=== PATIENT | female | born 1955 | race Caucasian/White ===

== ENCOUNTER → 2017-03-17 | Outpatient (CLI) | payer OTHER | LOC: BRMIMAGING 10:38 | PROVIDERS: ATTEND Family Medicine | DX: Z12.31 Encounter for screening mammogram for malignant neoplasm of breast (principal) | CPT/HCPCS: G0202 ==

== ENCOUNTER → 2017-06-01 | Outpatient (CLI) | payer OTHER | LOC: BRMIMAGING 14:46 | PROVIDERS: ATTEND Family Medicine | DX: M85.80 Other specified disorders of bone density and structure, unspecified site (principal); M19.072 Primary osteoarthritis, left ankle and foot | CPT/HCPCS: 73630-PO ==

== ENCOUNTER 2017-06-11 05:36 | Day surgery (SDC) | payer OTHER ==
--- NOTE | 2017-06-10 10:20 | GHP ---
[f rep st] HISTORY AND PHYSICAL DATE OF ADMISSION: 06/11/2017 Date of the surgery will be June 11, 2017. CHIEF COMPLAINT: Esophageal cancer. 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 She was not felt to be an appropriate candidate for e ndoscopic mucosal resection and did not want an esophagectomy. She underwent chemotherapy and radiat ion. 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 She had an EUS in March, which showed an ulcerated mass i nvolving 2/3 of the circumference. She has declined surgery. She wishes to pursue additional chemot herapy and radiation. She presents for port and PEG placement. PAST MEDICAL HISTORY: Asthma, Sjogren's, obstructive sleep apnea, hypertension, gastroesophageal ref lux disease, esophageal cancer and recent injury to her left foot. PAST SURGICAL HISTORY: Previous surgery includes hysterectomy without oophorectomy, sinus surgery, d ental implants, and Lasix. SOCIAL HISTORY: She previously worked for [employer]. She is retired. She does not use alcohol. She is single. REVIEW OF SYSTEMS: Significant for fatigue, weight loss, some difficulty swallowing and mild neuropa thy. PHYSICAL EXAMINATION: GENERAL: Pleasant, well-nourished, thin and well-groomed woman. HEENT: Norm ocephalic. No gross hearing deficits. Mucous membranes moist. Pupils equal and round. No scleral icterus. LUNGS: Clear to auscultation bilaterally. No increased work of breathing. CARDIAC: Regu lar rate. ABDOMEN: Bowel sounds present. She is soft and nontender. SKIN: Warm and dry. She has a wrap on her ankle. MUSCULOSKELETAL: Normal nails. PSYCH: Mood and affect normal. IMPRESSION AND PLAN: The patient is a 61-year-old woman with esophageal cancer. She will present fo r a port placement and G-tube placement. The risks and benefits, including, but not limited to, stro ke, heart attack, , blood clots, infection, bleeding, damage to surrounding structures, pneumoth orax or needing further surgery were discussed. /[id number]/MODL
[2017-06-11] MEDS ORDERED: ceFAZolin 2 GM/SWFI 2 GM/20 ML SYR IVP ONE (06:07)
[2017-06-11] MEDS ORDERED: LR 1,000 ML IV ONE (06:16)
[2017-06-11] MEDS ORDERED: BACITRACIN ZINC 14.2 GM OINTTUBE TP ONE (06:31)
[2017-06-11] MEDS ORDERED: BUPIVACAINE 0.5% 30 ML SDV ONE (06:31)
[2017-06-11 07:12] LABS: ANION GAP 11 mEq/L (8-16); CALCIUM 9.2 mg/dL (8.5-10.4); CARBON DIOXIDE 24 mEq/l (22-31); CHLORIDE 96 mEq/L (97-110); CREATININE 0.9 mg/dL (0.6-1.0); GLOMERULAR FILTRATION RATE > 60; GLUCOSE 87 mg/dL (70-100); POTASSIUM 4.7 mEq/L (3.5-5.2); SODIUM 131 mEq/L (134-144)
--- NOTE | 2017-06-11 07:23 | PDHPUP ---
History & Physical Update H&P update statement: This history and physical update is based on an assessment of the patient which was completed after admission or registration (within 24 hours), but prior to the surgery/procedure. H&P update: H&P reviewed & patient examined, no change in patient's condition since H&P completed
[2017-06-11] MEDS ORDERED: PHENYLEPHRINE HCL 100 MCG/ML SYR ONE (07:34)
[2017-06-11] MEDS ORDERED: PROPOFOL 200 MG/20 ML VIAL ONE (07:34)
[2017-06-11] MEDS ORDERED: LIDOCAINE 2% 5 ML SDV ONE (07:34)
[2017-06-11] MEDS ORDERED: MIDAZOLAM 2 MG/2 ML VIAL ONE (07:40)
[2017-06-11] MEDS ORDERED: fentaNYL 100 MCG/2 ML INJ ONE ×2 (07:57→10:03)
[2017-06-11] MEDS ORDERED: GLYCOPYRROLATE 0.2 MG/1 ML VIAL ONE ×2 (08:08→08:50)
[2017-06-11] MEDS ORDERED: PROPOFOL/EMULSION 500 MG/50 ML BOTTLE IV ONE (08:09)
--- NOTE | 2017-06-11 08:23 | PDANEPAE ---
ANE History of Present Illness 61 year old female for port placement and gastrostromy tube placement ANE Past Medical History - Cardiovascular History Hx Hypertension: Yes Hx Arrhythmias: No Hx Chest Pain: No Hx Coronary Artery / Peripheral Vascular Disease: No Hx CHF / Valvular Disease: No Hx Palpitations: No - Pulmonary History Hx COPD: No Hx Asthma/Reactive Airway Disease: Yes Hx Recent Upper Respiratory Infection: No Hx Oxygen in Use at Home: No Hx Sleep Apnea: Yes Sleep Apnea Screening Result - Last Documented: Positive - Neurologic History Hx Cerebrovascular Accident: No Hx Seizures: No Hx Dementia: No - Endocrine History Hx Diabetes: No - Renal History Hx Renal Disorders: No - Liver History Hx Hepatic Disorders: No - Neurological & Psychiatric Hx Hx Neurological and Psychiatric Disorders: Yes Neurological / Psychiatric History Comment: 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 COLONOSCOPY ANE Review of Systems Review of Systems: - Exercise capacity METS (RN): 3 METS ANE Patient History - Allergies Allergies/Adverse Reactions: morphine Allergy (Mild, Verified 06/11/17 06:09) Other-Enter Comments Penicillins Allergy (Mild, Verified 06/11/17 06:09) Rash - Home Medications Home Medications: Amlodipine Besylate 06/05/17 [Last Taken 06/11/17 01:00] Benicar 06/05/17 [Last Taken 06/11/17 01:00] Clonidine 06/05/17 [Last Taken 06/10/17 21:00] Hydrocodone-Acetamin 5-325 mg 06/05/17 [Last Taken 06/11/17 01:00] Medical Marijuana 06/05/17 [Last Taken 06/10/17] Pantoprazole Sodium 06/05/17 [Last Taken 06/11/17 01:00] Zoloft 25mg (*) 06/05/17 [Last Taken 06/10/17 20:00] Loratadine/Pseudoephedrine [Claritin-D 24 Hour Tablet] 06/11/17 [Last Taken ] Senokot 06/11/17 [Last Taken 06/10/17] - NPO status NPO Since - Liquids (Date): 06/10/17 NPO Since - Liquids (Time): 21:00 NPO Since - Solids (Date): 06/10/17 NPO Since - Solids (Time): 21:00 - Anes Hx Anes Hx: no prior problems - Smoking Hx Smoking Status: Never smoked - Family Anes Hx Family Hx Anesthesia Complications: NONE ANE Labs/Vital Signs - Labs Result Diagrams: 06/11/17 06:30 - Vital Signs Blood Pressure: 137/95 Heart Rate: 72 Respiratory Rate: 16 O2 Sat (%): 97 Height: 157.48 cm Weight: 58.967 kg ANE Physical Exam - Airway Mallampati Score: Class 1 Mouth exam: normal dental/mouth exam
--- NOTE | 2017-06-11 08:24 | POSTANESTH ---
Post Anesthetic Evaluation Respiratory Status: Normal, Stable Level of Consciousness/Mental Status: Can Participate in Eval Pain Control: Adequate, Prn Tx Ordered Nausea/Vomiting Control: Adequate, Prn Tx Ordered Complications Possibly Related to Anesthesia: None Noted
[2017-06-11] MEDS ORDERED: PROMETHAZINE HCL 25 MG/ML INJ IVP PRN (08:25)
[2017-06-11] MEDS ORDERED: ALBUTEROL 3 ML DEYVIAL IH PRN (08:25)
[2017-06-11] MEDS ORDERED: fentaNYL 100 MCG/2 ML INJ IVP PRN (08:25)
[2017-06-11] MEDS ORDERED: ONDANSETRON 4 MG/2 ML VIAL IVP PRN (08:25)
[2017-06-11] MEDS ORDERED: NALOXONE HCL 0.4 MG/ML INJ IVP PRN (08:25)
--- NOTE | 2017-06-11 08:35 | POSTOPPROG ---
Post Op Note Date of Operation: 06/11/17 Surgeon: Rach Yan Anesthesia: GET(General Endotracheal) Pre-op Diagnosis: esophageal ca Post-op Diagnosis: same Indication: 61 yo with esophageal june Procedure: R us guided IJ port and PEG Findings: tip svc Inf/Abcess present in the surg proc area at time of surgery?: No EBL: Minimal Drains: Other (g tube)
[2017-06-11] MEDS ORDERED: DEXAMETHASONE 4 MG/ML VIAL ONE (08:48)
[2017-06-11] MEDS ORDERED: NEOSTIGMINE METHYLSULFATE 3 MG/3 ML SYR ONE (08:50)
[2017-06-11] MEDS ORDERED: ALBUTEROL HFA ANES ONLY 200 PUFFS/8.5 GM MDI IH ONE (08:50)
[2017-06-11] MEDS ORDERED: LABETALOL HCL 5 MG/ML 20 ML MDV ONE (09:14)
[2017-06-11] MEDS: LABETALOL HCL 5 MG/ML 20 ML MDV IVP PRN ×3 (09:15→09:45)
[2017-06-11] MEDS ORDERED: LABETALOL HCL 5 MG/ML 20 ML MDV IVP PRN (09:47)
[2017-06-11 09:51] VITALS: PULSE 64
[2017-06-11] MEDS ORDERED: hydrALAZINE 20 MG/ML VIAL ONE (09:52)
[2017-06-11 10:13] VITALS: RESP 14
[2017-06-11] MEDS ORDERED: hydrALAZINE 20 MG/ML VIAL IVP PRN (10:28)
[2017-06-11] MEDS ORDERED: HYDROCODONE/APAP 5/325 TAB PO ONE (11:15)
[2017-06-11 12:28] VITALS: TEMP 97.7
--- NOTE | 2017-06-11 13:08 | PDHOMEO2F ---
Home Oxygen Face to Face Home Orders: I certify that a physician or a nurse practitioner or physician's events assistant has had a [id number] encounter with this patient on the date of this order due to the diagnosis listed, which relates to the primary reason the patient requires home oxygen. Alternative treatments have been tried, or considered, and deemed ineffective. It is anticipated that supplemental oxygen will result in improvement with treatment. Home oxygen qualifying diagnosis: Sleep Apnea SpO2 on room air (%): 91 Frequency of home oxygen needed: during sleep Home oxygen liters per minute: 2 Home oxygen delivery device: nasal cannula Concentrator: Yes E-tanks for mobility and back up: No If ordering portable O2, is the patient mobile in the home?: No I certify that, based on these findings, the home oxygen is medically necessary for this patient for the following length of time. Length of time home oxygen needed: 1 week
[2017-06-11] MEDS ORDERED: ACETAMINOPHEN/ASA/CAFFEINE 1 EACH TAB PO ONE (13:30)
--- NOTE | 2017-06-11 13:57 | PDHOMEO2F ---
Home Oxygen Face to Face Home Orders: I certify that a physician or a nurse practitioner or physician's food and beverage assistant has had a ynep-[id number] encounter with this patient on the date of this order due to the diagnosis listed, which relates to the primary reason the patient requires home oxygen. Alternative treatments have been tried, or considered, and deemed ineffective. It is anticipated that supplemental oxygen will result in improvement with treatment. Home oxygen qualifying diagnosis: Sleep apnea SpO2 on room air (%): 92% Frequency of home oxygen needed: during sleep Home oxygen liters per minute: 2 Home oxygen delivery device: nasal cannula Concentrator: Yes E-tanks for mobility and back up: No I certify that, based on these findings, the home oxygen is medically necessary for this patient for the following length of time. Length of time home oxygen needed: 1 week
[2017-06-11 14:16] VITALS: BP 136/84; O2SAT 96
== END 2017-06-11 14:17 | disposition home or self-care (01) ==
LOC: FSGY 05:36
PROVIDERS: ATTEND Surgery
DX: C15.4 Malignant neoplasm of middle third of esophagus (principal); J45.909 Unspecified asthma, uncomplicated; M35.00 Sjogren syndrome, unspecified; G47.33 Obstructive sleep apnea (adult) (pediatric); I10 Essential (primary) hypertension; K21.9 Gastro-esophageal reflux disease without esophagitis
CPT/HCPCS: 36561; 43246; 71010; 76001; C1769; C1788; J0360; J0690; J1100; J1642; J2250; J2370; J2704; J2710; J3010; J3490

== ENCOUNTER 2017-07-09 17:24 | Observation (INO) | payer OTHER ==
--- NOTE | 2017-07-09 15:47 | PDANEPAE ---
ANE History of Present Illness Patient is a 61 year old female with PMH significant for throat cancer s/p 4 chemotherapy treatment and radiation treatments. She can swallow liquids and solids, PEG 06/11/2017 for supplemental nutrition. No cardiac issues, exercise induced asthma, non smoker, no renal or thyroid medical issues. Patient has Bilateral neuropathy. Never had a stroke. History of HTN she is on amlodipine, and two other antihypertensive medications she does not remember. She is on protonix and zoloft. Last ate solids 1.5 hours ago. No difficulty with anesthesia. ANE Past Medical History - Cardiovascular History Hx Hypertension: Yes Hx Arrhythmias: No Hx Chest Pain: No Hx Coronary Artery / Peripheral Vascular Disease: No Hx CHF / Valvular Disease: No Hx Palpitations: No - Pulmonary History Hx COPD: No Hx Asthma/Reactive Airway Disease: Yes Hx Recent Upper Respiratory Infection: No Hx Oxygen in Use at Home: No Hx Sleep Apnea: Yes - Neurologic History Hx Cerebrovascular Accident: No Hx Seizures: No Hx Dementia: No - Endocrine History Hx Diabetes: No - Renal History Hx Renal Disorders: No - Liver History Hx Hepatic Disorders: No - Neurological & Psychiatric Hx Hx Neurological and Psychiatric Disorders: Yes Neurological / Psychiatric History Comment: 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 COLONOSCOPY ANE Review of Systems Review of Systems: ANE Patient History - Allergies Allergies/Adverse Reactions: morphine Allergy (Mild, Verified 06/11/17 06:09) Other-Enter Comments Penicillins Allergy (Mild, Verified 06/11/17 06:09) Rash - Home Medications Home Medications: Amlodipine Besylate 06/05/17 [Last Taken 06/11/17 01:00] Benicar 06/05/17 [Last Taken 06/11/17 01:00] Clonidine 06/05/17 [Last Taken 06/10/17 21:00] Hydrocodone-Acetamin 5-325 mg 06/05/17 [Last Taken 06/11/17 01:00] Medical Marijuana 06/05/17 [Last Taken 06/10/17] Pantoprazole Sodium 06/05/17 [Last Taken 06/11/17 01:00] Zoloft 25mg (*) 06/05/17 [Last Taken 06/10/17 20:00] Loratadine/Pseudoephedrine [Claritin-D 24 Hour Tablet] 06/11/17 [Last Taken ] Senokot 06/11/17 [Last Taken 06/10/17] - Smoking Hx Smoking Status: Never smoked - Family Anes Hx Family Hx Anesthesia Complications: NONE ANE Physical Exam - Airway Neck exam: FROM Mallampati Score: Class 1 Mouth exam: normal dental/mouth exam - Pulmonary Pulmonary: no respiratory distress - Cardiovascular Cardiovascular: regular rate and rhythym - ASA Status ASA Status: III, E
--- NOTE | 2017-07-09 17:13 | GIREPORT ---
[facility] Surgical Services - Endoscopy Department Patient Name: Violeta Marti Procedure Date: 07/09/2017 3:47 PM Patient Type: Inpatient Attending MD/ ER Physician: Shawna Pittman MD Procedure: Upper GI endoscopy Indications: Dysphagia, Replace PEG tube because existing gastrostomy tube came out Providers: Shawna Pittman MD Medicines: General Anesthesia Complications: No immediate complications. Description of Procedure: After obtaining informed consent, the endoscope was passed under direct vision. Throughout the procedure, the patient's blood pressure, pulse, and oxygen saturations were monitored continuously. The Endoscope was intro duced through the mouth, and advanced to the duodenal bulb. The upper GI endo scopy was accomplished without difficulty. The patient tolerated the procedur e well. Findings: Moderately severe esophagitis with no bleeding was found in the middle third of the esophagus. There was evidence of a closed previous gastrostomy present in the cheryl wilmer antrum. The PEG tube bumper was in the skin. This was reomoved and PEG tube track was explored by Dr. Yan and new PEG was placed. Please see Dr. Yan report. No perforation was seen. Repeat EGD was prefermoed and mild ooz ing was seen in the esophgaus from bumper trauma but no perfoarion. The examined duodenum was normal. Estimated Blood Loss: Estimated blood loss was minimal. Post Op Diagnosis: - Moderately severe acute and chemotherapy/radiation esophagitis. - Closed previous gastrostomy present. New PEG tube placed. - Normal examined duodenum. - No specimens collected. Recommendation: - Observe patient in same day observation unit for observation. - Please follow the post-PEG recommendations including: NPO until check ed by physician. - Thank you for allowing me to participate in the care of your patient. Attending Participation: I personally performed the entire procedure. Shawna Pittman MD Shawna Pittman MD 07/09/2017 5:13:12 PM This report has been signed electronicallyShawna Pittman MD Number of Addenda: 0 Note Initiated On: 07/09/2017 3:47 PM [email or web address]
[~2017-07-09 17:24] MED LIST: ALBUTEROL HFA ANES ONLY 200 PUFFS/8.5 GM MDI IH ONE; LABETALOL HCL 5 MG/ML 20 ML MDV ONE; LIDOCAINE 2% 5 ML SDV ONE; PROPOFOL 200 MG/20 ML VIAL ONE; ROCURONIUM 50 MG/5 ML VIAL ONE; SUCCINYLCHOLINE CHLORIDE 200 MG/10 ML SYR IVP ONE; fentaNYL 100 MCG/2 ML INJ ONE
[2017-07-09] MEDS ORDERED: NALOXONE HCL 0.4 MG/ML INJ IVP PRN (17:25)
[2017-07-09] MEDS ORDERED: HYDROmorphONE/DILAUDID 1 MG/ML INJ ONE (17:32)
[2017-07-09] MEDS: HYDROmorphONE/DILAUDID 1 MG/ML INJ IVP PRN ×5 (17:32→23:18)
[2017-07-09] MEDS: LABETALOL HCL 5 MG/ML 20 ML MDV IVP PRN ×2 (17:35→17:55)
--- NOTE | 2017-07-09 17:48 | POSTOPPROG ---
Post Op Note Date of Operation: 07/09/17 Surgeon: Rach Yan Title Insurance Agent: devika Anesthesiologist: fabian Anesthesia: GET(General Endotracheal) Pre-op Diagnosis: esophageal ca Post-op Diagnosis: same Indication: 61 yo peg dislodged Procedure: PEG Findings: track Inf/Abcess present in the surg proc area at time of surgery?: Yes Depth: Superfical (Skin SQ) EBL: Minimal
[2017-07-09] MEDS ORDERED: ONDANSETRON 4 MG/2 ML VIAL IVP PRN (17:49)
[2017-07-09] MEDS: D5W 1/2 NS W/ 20 KCl/L 1,000 ML IV SCH (18:54)
[2017-07-09] MEDS: HYDROmorphONE/DILAUDID 2 MG/ML INJ IVP PRN ×2 (19:22→22:00)
--- NOTE | 2017-07-09 20:58 | GCON ---
[f rep st] CONSULTATION REASON FOR CONSULTATION: Hypertension management. HISTORY OF PRESENT ILLNESS: A 61-year-old female with a history of esophageal cancer of the mid thor acic esophagus. The patient thought not to be a surgical candidate, and the patient did not desire e sophagectomy. She has undergone chemotherapy, and radiation, and has had a port and a PEG tube place d. The patient is presenting today for a new PEG tube placement, as her initial was dislodged. The patient is post procedure on my evaluation, reporting stomach discomfort. Denies chest pain. Denies shortness of breath. Denies headache, vision changes. Denies nausea or vomiting. Reports normal s tool yesterday. Denies dysuria, hematuria, lower extremity edema. PAST MEDICAL HISTORY: 1. Esophageal cancer. 2. Sjogren's. 3. Obstructive sleep apnea. 4. Hypertension. 5. Gastroesophageal reflux disease. 6. Asthma. SOCIAL HISTORY: Negative for tobacco, alcohol or illicit drugs. FAMILY HISTORY: Negative for heart disease. REVIEW OF SYSTEMS: A 10-point review of systems is negative with the exception of that reported in t he HPI. PHYSICAL EXAMINATION: VITAL SIGNS: Blood pressure 145/96, heart rate 92, respiratory rate 14, 95% o n 2 L. GENERAL: This is a middle-aged female in no acute distress. HEENT: Notable for moist mucou s membranes. Eye exam is negative for any icterus. CARDIAC: The patient is regular rate and rhythm . PULMONARY: Clear to auscultation bilaterally. GASTROINTESTINAL: Positive bowel sounds. ABDOMEN : Tender to palpation. MUSCULOSKELETAL: Negative for any lower extremity edema. SKIN: Negative f or any rashes. NEUROLOGIC: She is alert and oriented x3. PSYCHIATRIC: She is pleasant and coopera tive on interview and examination. LABORATORY DATA: Chest x-ray from her preceding hospitalization, I personally reviewed and interpret ed, shows no acute infiltrates. Report is in proper positioning, showed a large gastric bubble. White count 2.1, hematocrit 31, platelets 196. Sodium of 130, which is chronically low, creatinine 0 .8. ASSESSMENT AND PLAN: This is a 61-year-old female with esophageal cancer presenting for percutaneous endoscopic gastrostomy replacement. 1. Hypertension. The patient did have elevated blood pressures initially postoperative. Treated wi th IV pushes of labetalol. Now on the medical floor, and her blood pressures are settling. We will allow the patient some permissive hypertension overnight. We will reconcile her home medications to begin tomorrow. If her systolic blood pressures remain in the 140s, there is no need for additional treatment this evening. 2. Esophageal cancer. The patient is followed closely on the outside by Oncology. New PEG tube is in place, and will be used tomorrow for the first time. 3. Hyponatremia. This appears chronic. The patient appears euvolemic on my exam, can follow. 4. Gastroesophageal reflux disease. We will continue her PPI when medications are reconciled. 5. Prophylaxis per surgery. 6. Diet clear liquids per Dr. Yan. DISPOSITION: I expect in less than 2 midnights. If the patient recovers well from her postsurgical state, she can likely be discharged tomorrow. Thank you for the consultation. We will happily follow along. I have discussed the case with the RN on the floor. We will continue to monitor her blood pressure without urgency, treating systolic blo od pressures in the 160s or 170s. /[id number]/MODL
[2017-07-09] MEDS ORDERED: SENNOSIDES 1 TAB PO PRN (22:42)
[2017-07-09] MEDS: CEPACOL LOZENGE PO PRN (23:18)
[2017-07-10] MEDS: HYDROmorphONE/DILAUDID 1 MG/ML INJ IVP PRN ×3 (01:36→08:20)
[2017-07-10] MEDS: CEPACOL LOZENGE PO PRN (02:44)
[2017-07-10] MEDS: D5W 1/2 NS W/ 20 KCl/L 1,000 ML IV SCH (04:53)
[2017-07-10 08:11] VITALS: BP 177/116; PULSE 86; RESP 20; TEMP 98.7; O2SAT 92
[2017-07-10] MEDS ORDERED: OLMESARTAN MEDOXOMIL 20 MG TAB PO SCH (09:00)
[2017-07-10] MEDS ORDERED: PANTOPRAZOLE SODIUM 40 MG TAB PO SCH (09:00)
[2017-07-10] MEDS ORDERED: SERTRALINE HCL 100 MG TAB PO SCH (09:00)
[2017-07-10] MEDS ORDERED: Herbals/Supplements -Info Only PO SCH (09:00)
--- NOTE | 2017-07-10 09:27 | SOAPPROG ---
SOAP Progress Note Assessment/Plan: Assessment/Plan: 61yo F POD#1 s/p PEG replacement OK to use peg today Pain significantly improved Start augmentin Dispo: DC today, f/u 1 week. Call with worsening symptoms, questions or concers S: pain improved compared to admission. No new complaints this morning. wants to go home O: Laying in bed, comfortable, NAD No increased WOB +BS, soft, nondistended. tender around G tube. Min surrounding erythema, sutures intact Objective: Vital Signs Temp Pulse Resp BP Pulse Ox 37.1 C 86 20 177/116 H 92 07/10/17 08:00 07/10/17 08:00 07/10/17 08:00 07/10/17 08:00 07/10/17 08:00 07/09/17 07/10/17 07/11/17 05:59 05:59 05:59 Intake Total 1100 Output Total 300 1400 Balance 800 -1400
--- NOTE | 2017-07-10 10:32 | ASMTCMCOM ---
CM Note CM Note Notes: Chart reviewed. Patient with dx of esophageal cancer here for peg tube placement. DC to home independent. No needs identified. CM available if needs arise. Date Signed: 07/10/2017 10:31 AM Electronically Signed By:Amy Soliz RN
--- NOTE | 2017-07-10 13:16 | HOSPPROG ---
Hospitalist Progress Note Assessment/Plan: 61yo F with hx esophageal CA. First encounter, chart reviewed. # POD#1 s/p PEG replacement OK to use peg today Pain improved #HTN restarted home meds elevated this am cont home meds # Hx Hyponatremia FU outpatient #Dispo per surgery D/W surgery Start augmentin DC today, f/u 1 week. Subjective: Feeling better. Eager to go home. Objective: Vital Signs Temp Pulse Resp BP Pulse Ox 37.1 C 86 20 177/116 H 92 07/10/17 08:00 07/10/17 08:00 07/10/17 08:00 07/10/17 09:41 07/10/17 08:00 07/09/17 07/10/17 07/11/17 05:59 05:59 05:59 Intake Total 1100 Output Total 300 1400 Balance 800 -1400 - Physical Exam Constitutional: appears nourished, chronically ill appearing, uncomfortable Eyes: PERRL, anicteric sclera, EOMI Ears, Nose, Mouth, Throat: moist mucous membranes, hearing normal, ears appear normal Cardiovascular: tachycardia, No JVD, No edema Respiratory: no respiratory distress, no rales or rhonchi, reduced air movement Gastrointestinal: normoactive bowel sounds, tenderness, No ascites Skin: warm, normal color, No erythema Musculoskeletal: normal joint ROM, no joint effusions, generalized weakness Neurologic: AAOx3 Psychiatric: interacting appropriately, not anxious, not encephalopathic, thought process linear ICD10 Worksheet Patient Problems: Problems Problem Status Onset PEG (percutaneous endoscopic gastrostomy) adjustment/replacement/removal Acute - ICD10 Problem Qualifiers (1) PEG (percutaneous endoscopic gastrostomy) adjustment/replacement/removal
== END 2017-07-10 10:31 | disposition home or self-care (01) ==
LOC: FSGY 17:24 → F3E 17:48
PROVIDERS: ADMIT Surgery; ATTEND Surgery
PROC: 0DP68UZ Removal of Feeding Device from Stomach, Via Natural or Artificial Opening Endoscopic (ICD-10-PCS; principal; 2017-07-09 16:00)
PROC: 0DH63UZ Insertion of Feeding Device into Stomach, Percutaneous Approach (ICD-10-PCS; principal; 2017-07-09 16:00)
DX: T85.598A Other mechanical complication of other gastrointestinal prosthetic devices, implants and grafts, initial encounter (principal); I97.3 Postprocedural hypertension; E78.1 Pure hyperglyceridemia; C15.4 Malignant neoplasm of middle third of esophagus; M35.00 Sjogren syndrome, unspecified; G47.33 Obstructive sleep apnea (adult) (pediatric); K21.9 Gastro-esophageal reflux disease without esophagitis; J45.909 Unspecified asthma, uncomplicated
CPT/HCPCS: 43246; 76000; B4087; G0378; J0330; J1170; J2704; J3010; J3490

== ENCOUNTER → 2017-09-15 | Outpatient (CLI) | payer OTHER | LOC: FIMAGING 14:36 | PROVIDERS: ATTEND Nurse Practitioner | DX: J98.4 Other disorders of lung (principal); J44.9 Chronic obstructive pulmonary disease, unspecified ==

== ENCOUNTER 2017-09-29 10:52 | Outpatient (CLI) | payer OTHER ==
[2017-09-29] MEDS ORDERED: diphenhydrAMINE 25 MG CAP PO ONE ×2 (11:17→11:30)
[2017-09-29] MEDS ORDERED: ACETAMINOPHEN 325 MG TAB ONE (11:17)
[2017-09-29] MEDS ORDERED: ACETAMINOPHEN 325 MG TAB PO ONE (11:30)
== END 2017-09-29 14:00 | disposition home or self-care (01) ==
LOC: FOBOP 10:52
PROVIDERS: ATTEND Internal Medicine Hematology & Oncology
PROC: 30233N1 Transfusion of Nonautologous Red Blood Cells into Peripheral Vein, Percutaneous Approach (ICD-10-PCS; principal; 2017-09-29)
DX: C15.9 Malignant neoplasm of esophagus, unspecified (principal); D70.2 Other drug-induced agranulocytosis; D50.9 Iron deficiency anemia, unspecified; R05 Cough; E87.6 Hypokalemia; E86.0 Dehydration; Q87.1 Congenital malformation syndromes predominantly associated with short stature; E87.1 Hypo-osmolality and hyponatremia; R11.0 Nausea; K29.70 Gastritis, unspecified, without bleeding; K55.9 Vascular disorder of intestine, unspecified; F32.9 Major depressive disorder, single episode, unspecified; R63.4 Abnormal weight loss
CPT/HCPCS: 36430; P9016; P9021; J1642

== ENCOUNTER 2017-10-26 13:05 | Day surgery (SDC) | payer OTHER ==
[2017-10-26] MEDS ORDERED: LIDOCAINE 1% 2 ML INJ ID PRN (13:40)
[2017-10-26] MEDS ORDERED: LR 1,000 ML IV ONE (13:40)
[2017-10-26] MEDS ORDERED: ONDANSETRON 4 MG/2 ML VIAL IVP PRN (15:06)
[2017-10-26] MEDS ORDERED: ALBUTEROL 3 ML DEYVIAL IH PRN (15:06)
[2017-10-26] MEDS ORDERED: NALOXONE HCL 0.4 MG/ML INJ IVP PRN (15:06)
--- NOTE | 2017-10-26 15:07 | PDANEPAE ---
ANE History of Present Illness EGD Colonoscopy ANE Past Medical History - Cardiovascular History Hx Hypertension: Yes Hx Arrhythmias: No Hx Chest Pain: No Hx Coronary Artery / Peripheral Vascular Disease: No Hx CHF / Valvular Disease: No Hx Palpitations: No - Pulmonary History Hx COPD: No Hx Asthma/Reactive Airway Disease: Yes Hx Recent Upper Respiratory Infection: No Hx Oxygen in Use at Home: No Hx Sleep Apnea: Yes Sleep Apnea Screening Result - Last Documented: Positive Pulmonary History Comment: BRONCHITIS BEGAN Z-PACK LAST DOSE 10/23/2017 @1000. 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 EGD/PEG TUBE PLACEMENT 2017. COLON RESECTION. DENTAL IMPLANTS. COLONOSCOPY ANE Review of Systems Review of Systems: - Exercise capacity METS (RN): 3 METS ANE Patient History - Allergies Allergies/Adverse Reactions: morphine Allergy (Mild, Verified 06/11/17 06:09) Other-Enter Comments Penicillins Allergy (Mild, Verified 06/11/17 06:09) Rash - Home Medications Home Medications: Herbals/Supplements -Info Only 1 ea PO DAILY 07/09/17 [Last Taken 10/25/17] Hydrocodone/Acetaminophen [[place] 5/325 (*)] 1 tab PO Q4H PRN 07/09/17 [Last Taken 10/25/17] Pantoprazole Sodium [Protonix 40mg (*)] 40 mg PO BID 07/09/17 [Last Taken 03:00] Sertraline HCl [Zoloft 100mg (*)] 100 mg PO DAILY 07/09/17 [Last Taken 10/25/17 09:00] amLODIPine BESYLATE [Amlodipine Besylate] 10 mg PO PRN 07/09/17 [Last Taken 01/06 03:00] clonIDINE [Catapres (*)] 0.1 mg PO PRN 07/09/17 [Last Taken 10/26/17 06:00] Flonase Allergy Relief DAILY 10/23/17 [Last Taken 10/25/17] Fluconazole DAILY 10/23/17 [Last Taken 10/25/17] LORAZEPAM PRN 10/23/17 [Last Taken 10/25/17] Nebulizer and Compressor EVERY OTHER DAY 10/23/17 [Last Taken 10/20/17] Pepcid BID 10/23/17 [Last Taken 10/26/17 03:00] Ventolin Hfa Inhaler PRN 10/23/17 [Last Taken 10/25/17] Zithromax DAILY 10/23/17 [Last Taken 10/23/17] - NPO status NPO Since - Liquids (Date): 10/26/17 NPO Since - Liquids (Time): 03:00 NPO Since - Solids (Date): 10/25/17 NPO Since - Solids (Time): 09:00 - Smoking Hx Smoking Status: Never smoked - Family Anes Hx Family Hx Anesthesia Complications: NONE ANE Labs/Vital Signs - Vital Signs Blood Pressure: 124/91 Heart Rate: 86 Respiratory Rate: 16 O2 Sat (%): 91 Height: 157.48 cm Weight: 52.163 kg ANE Physical Exam - Airway Neck exam: FROM Mallampati Score: Class 2 - Pulmonary Pulmonary: clear to auscultation - Cardiovascular Cardiovascular: regular rate and rhythym - ASA Status ASA Status: II ANE Anesthesia Plan Anesthesia Plan: GA with mask
[2017-10-26] MEDS ORDERED: PROPOFOL/EMULSION 500 MG/50 ML BOTTLE IV ONE (15:16)
--- NOTE | 2017-10-26 15:58 | PDGENHP ---
History & Physical Chief Complaint: melena, anemia History of Present Illness: 61 year old female presents for evaluation of anemia Pertinent Past, Social, Family History: PMHx; esoph cancer Relevant Physical Exam: HEENT: anicteric. CV; RRR +s1s2. Lungs: CTAB. Abd: soft, nt, + BS Cardiorespiratory Assessment: ASA 3
--- NOTE | 2017-10-26 16:12 | POSTANESTH ---
Post Anesthetic Evaluation Cardiovascular Status: Normal, Stable Respiratory Status: Similar to Pre-op Cond., Tx Decrease in SpO2 Level of Consciousness/Mental Status: Mildly Sleepy, Arousable Pain Control: Adequate, Prn Tx Ordered Nausea/Vomiting Control: Adequate, Prn Tx Ordered
--- NOTE | 2017-10-26 16:14 | GIREPORT ---
[facility] Surgical Services - Endoscopy Department Patient Name: Violeta Marti Procedure Date: 10/26/2017 3:04 PM Patient Type: Outpatient Attending MD/ ER Physician: Abel Comer MD Procedure: Colonoscopy Indications: Melena, Iron deficiency anemia Patient Profile: 61 year old female presents for evaluation of iron deficiency anemia/me myah. Providers: Abel Comer MD Medicines: Monitored Anesthesia Care Complications: No immediate complications. Estimated blood loss: None. Description of Procedure: After obtaining informed consent, the scope was passed under direct vis ion. Throughout the procedure, the patient's blood pressure, pulse, and oxyg en saturations were monitored continuously. The Colonoscope with irrigatio n channel was introduced through the anus and advanced to the ileocolonic anastomosis. The colonoscopy was performed without difficulty. The stephanie ent tolerated the procedure well. The quality of the bowel preparation was good. The terminal ileum, ileocecal valve, appendiceal orifice, and rectum we re photographed. Findings: The perianal and digital rectal examinations were normal. Pertinent negatives include no palpable rectal lesions. Diverticula were found in the sigmoid colon and descending colon. The terminal ileum appeared normal. Estimated Blood Loss: Estimated blood loss: none. Post Op Diagnosis: - Diverticulosis in the sigmoid colon and in the descending colon. - The examined portion of the ileum was normal. - No specimens collected. - Etiology? Can consider CT enterography, but suspect that symptoms are secondary to eospahgeal cause Recommendation: - Discharge patient to home (with escort). - Resume previous diet. - Continue present medications. - Thank you for allowing me to participate in the care of your patient. Attending Participation: I personally performed the entire procedure. Abel Comer MD Abel Comer MD 10/26/2017 4:14:04 PM This report has been signed electronicallyAbel Comer MD Number of Addenda: 0 Note Initiated On: 10/26/2017 3:04 PM Total Procedure Duration Time 0 hours 12 minutes 35 seconds [email or web address]
--- NOTE | 2017-10-26 17:05 | GIREPORT ---
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 Providers: Abel Comer MD Medicines: Monitored Anesthesia Care Complications: No immediate complications. Estimated blood loss: Minimal. Description of Procedure: After obtaining informed consent, the endoscope was passed under direct vision. Throughout the procedure, the patient's blood pressure, pulse, and oxygen saturations were monitored continuously. The Endoscope was intro duced through the mouth, and advanced to the second part of duodenum. The upp er GI endoscopy was accomplished without difficulty. The patient tolerated th e procedure well. The Endoscope was introduced through the mouth, and adv anced to the second part of duodenum. The upper GI endoscopy was accomplished without difficulty. The patient tolerated the procedure well. Findings: A small, fungating mass was found in the middle third of the esophagus. The mass was non-obstructing and not circumferential. LA Grade D (one or more mucosal breaks involving at least 75% of esopha geal circumference) esophagitis with no bleeding was found at the gastroesophageal junction. This area was strictured to 6mm and the scop e could not be passed through the stricture without dilation. A TTS dilat or was passed through the scope. Dilation with a 6-7-8 mm balloon dilator was performed to 8 mm. A large hiatal hernia was present. The examined duodenum was normal. Estimated Blood Loss: Estimated blood loss was minimal. Post Op Diagnosis: - Malignant esophageal tumor was found in the middle third of the esoph gary. Biopsies were not taken due to the friability and blood seen on dilatio n. - LA Grade D esophagitis. Dilated. - Large hiatal hernia. - Normal examined duodenum. - No specimens collected. Recommendation: - Perform a colonoscopy today. - More recommendations on colonoscopy report. - Use a proton pump inhibitor PO BID. - Follow an antireflux regimen. Attending Participation: I personally performed the entire procedure. Aebl Comer MD Abel Comer MD 10/26/2017 5:05:22 PM This report has been signed electronicallyAbel Comer MD Number of Addenda: 0 Note Initiated On: 10/26/2017 1:55 PM [email or web address]}
[2017-10-26 17:39] VITALS: BP 139/102
== END 2017-10-26 18:07 | disposition home or self-care (01) ==
LOC: FSGY 13:05
PROVIDERS: ATTEND Internal Medicine Gastroenterology
DX: C15.9 Malignant neoplasm of esophagus, unspecified (principal); K21.0 Gastro-esophageal reflux disease with esophagitis; K57.30 Diverticulosis of large intestine without perforation or abscess without bleeding; K44.9 Diaphragmatic hernia without obstruction or gangrene
CPT/HCPCS: 43249; 45378; C1726; J2704

== ENCOUNTER 2017-11-21 08:57 | Outpatient (CLI) | payer OTHER ==
[2017-11-21] MEDS ORDERED: ACETAMINOPHEN 325 MG TAB PO ONE (09:30)
[2017-11-21] MEDS ORDERED: diphenhydrAMINE 25 MG CAP PO ONE (09:30)
[2017-11-21 15:02] VITALS: BP 146/106
== END 2017-11-21 14:55 | disposition home or self-care (01) ==
LOC: FOBOP 08:57
PROVIDERS: ATTEND Internal Medicine Hematology & Oncology
PROC: 30233N1 Transfusion of Nonautologous Red Blood Cells into Peripheral Vein, Percutaneous Approach (ICD-10-PCS; principal; 2017-11-21)
DX: C15.9 Malignant neoplasm of esophagus, unspecified (principal)
CPT/HCPCS: 36430; P9016; P9021; J1642

== ENCOUNTER 2017-12-05 08:35 | Outpatient (CLI) | payer OTHER ==
[2017-12-05] MEDS ORDERED: ACETAMINOPHEN 325 MG TAB PO ONE (09:00)
== END 2017-12-05 14:22 | disposition home or self-care (01) ==
LOC: FOBOP 08:35
PROVIDERS: ATTEND Internal Medicine Hematology & Oncology
PROC: 30233N1 Transfusion of Nonautologous Red Blood Cells into Peripheral Vein, Percutaneous Approach (ICD-10-PCS; principal; 2017-12-05)
DX: C15.9 Malignant neoplasm of esophagus, unspecified (principal)
CPT/HCPCS: 36430; P9016; J1200; J1642

== ENCOUNTER 2017-12-09 07:32 | Day surgery (SDC) | payer OTHER ==
[2017-12-09] MEDS ORDERED: LR 1,000 ML IV ONE (07:57)
[2017-12-09] MEDS ORDERED: LIDOCAINE 1% 2 ML INJ ID PRN (07:57)
--- NOTE | 2017-12-09 08:48 | CPEKG ---
Heart Rate: 98 RR Interval: 612 P-R Interval: 144 QRSD Interval: 72 QT Interval: 344 QTC Interval: 440 P [place]: 44 QRS [place]: 41 T Wave [place]: 38 EKG Severity - NORMAL ECG - EKG Impression: SINUS RHYTHM Electronically Signed By: Antolin Buitrago 14-Dec-2017 02:37:35
[2017-12-09 09:01] LABS: PLATELET COUNT 162 10^3/uL (150-400)
[2017-12-09] MEDS ORDERED: PROPOFOL 200 MG/20 ML VIAL ONE (10:41)
[2017-12-09] MEDS ORDERED: NALOXONE HCL 0.4 MG/ML INJ IVP PRN (10:41)
--- NOTE | 2017-12-09 10:41 | PDANEPAE ---
ANE Past Medical History - Cardiovascular History Hx Hypertension: Yes Hx Arrhythmias: No Hx Chest Pain: No Hx Coronary Artery / Peripheral Vascular Disease: No Hx CHF / Valvular Disease: No Hx Palpitations: No - Pulmonary History Hx COPD: No Hx Asthma/Reactive Airway Disease: Yes Hx Recent Upper Respiratory Infection: No Hx Oxygen in Use at Home: No Hx Sleep Apnea: Yes Sleep Apnea Screening Result - Last Documented: Positive Pulmonary History Comment: BRONCHITIS BEGAN Z-PACK LAST DOSE 10/23/2017 @1000. 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 - Other Health History Other Health History: lots of drainage R/T allergies. G-tube reddened. anemia - Chronic Pain History Chronic Pain: Yes (refered pain from reflux,left foot injury) - Surgical History Prior Surgeries: DENTAL IMPLANTS. COLONOSCOPY ANE Review of Systems Review of Systems: - Exercise capacity METS (RN): 3 METS ANE Patient History - Allergies Allergies/Adverse Reactions: morphine Allergy (Mild, Verified 12/07/17 15:34) Other-Enter Comments Penicillins Allergy (Mild, Verified 12/07/17 15:34) Rash - Home Medications Home Medications: Herbals/Supplements -Info Only 07/09/17 [Last Taken 1 Day Ago ~12/08/17] Hydrocodone/Acetaminophen [[place] 5/325 (*)] 07/09/17 [Last Taken 12/09/17 06:30 ] Pantoprazole Sodium [Protonix 40mg (*)] 07/09/17 [Last Taken 12/09/17 06:30] Sertraline HCl [Zoloft 100mg (*)] 07/09/17 [Last Taken 12/08/17 19:00] amLODIPine BESYLATE [Amlodipine Besylate] 07/09/17 [Last Taken 12/09/17 06:30] Flonase Allergy Relief 10/23/17 [Last Taken 12/08/17] LORAZEPAM 10/23/17 [Last Taken 12/08/17] Nebulizer and Compressor 10/23/17 [Last Taken 2 Weeks Ago ~11/25/17] Pepcid 10/23/17 [Last Taken 12/09/17 06:30] Ventolin Hfa Inhaler 10/23/17 [Last Taken 12/08/17 14:00] Carafate 1 GM (*) 12/07/17 [Last Taken 12/08/17 19:00] Gaviscon Es Tablet Chew 12/07/17 [Last Taken 12/08/17 21:00] - NPO status NPO Since - Liquids (Date): 12/09/17 NPO Since - Liquids (Time): 06:30 NPO Since - Solids (Date): 12/08/17 NPO Since - Solids (Time): 20:00 - Smoking Hx Smoking Status: Never smoked - Family Anes Hx Family Hx Anesthesia Complications: NONE ANE Labs/Vital Signs - Labs Result Diagrams: 12/09/17 08:35 12/09/17 08:35 - Vital Signs Blood Pressure: 127/88 Heart Rate: 95 Respiratory Rate: 16 O2 Sat (%): 93 Height: 157.48 cm Weight: 52.163 kg ANE Physical Exam - Airway Neck exam: FROM Mallampati Score: Class 1 Mouth exam: normal dental/mouth exam - Pulmonary Pulmonary: no respiratory distress, no rales or rhonchi, clear to auscultation - Cardiovascular Cardiovascular: regular rate and rhythym - ASA Status ASA Status: IV ANE Anesthesia Plan Anesthesia Plan: MAC
[2017-12-09] MEDS ORDERED: INDOMETHACIN 50 MG SUPP PR PRN (10:42)
--- NOTE | 2017-12-09 10:42 | PDGENHP ---
History & Physical Chief Complaint: GI bleed History of Present Illness: 62 year old female with a history of esophageal cancer presents for evaluaton of GI bleed. Pertinent Past, Social, Family History: PMHx: sjogrens, OG, asthma, met esoph cancer Relevant Physical Exam: HEENT: anicteric. CV: RRR +s1s2 No m/r/g. Lungs: CTAB. Abd: soft, nt, + bs Cardiorespiratory Assessment: ASA 4
[2017-12-09] MEDS ORDERED: NS 500 ML IV SCH (10:45)
--- NOTE | 2017-12-09 11:21 | GIREPORT ---
[facility] Surgical Services - Endoscopy Department Patient Name: Violeta Marti Procedure Date: 12/09/2017 10:48 AM Patient Type: Outpatient Attending MD/ ER Physician: Abel Comer MD Procedure: Upper GI endoscopy Indications: Acute post hemorrhagic anemia, Melena Patient Profile: 62 year old female presents for evaluation of melena/post hemorrhagic a nemia. Providers: Abel Comer MD Medicines: Monitored Anesthesia Care Complications: No immediate complications. Estimated blood loss: Minimal. Description of Procedure: After obtaining informed consent, the endoscope was passed under direct vision. Throughout the procedure, the patient's blood pressure, pulse, and oxygen saturations were monitored continuously. The Endoscope was intro duced through the mouth, and advanced to the second part of duodenum. The [facility] er GI endoscopy was accomplished without difficulty. The patient tolerated th e procedure well. Findings: A large, fungating and ulcerating mass was found in the lower third of the esophagus. The mass was friable and bleed easily on miniml contact. The mass was partially obstructing and circumferential. A hiatal hernia was present. The examined duodenum was normal. Estimated Blood Loss: Estimated blood loss was minimal. Post Op Diagnosis: - Partially obstructing, malignant esophageal tumor was found in the lo wer third of the esophagus. - Hiatal hernia. - Normal examined duodenum. - No specimens collected. - Suspect bleeding is from esophageal cancer. Recommendation: - Discharge patient to home (with escort). - Advance diet as tolerated. - Continue present medications. - Thank you for allowing me to participate in the care of your patient. Attending Participation: I personally performed the entire procedure. Abel Comer MD Abel Comer MD 12/09/2017 11:20:51 AM This report has been signed electronicallyAbel Comer MD Number of Addenda: 0 Note Initiated On: 12/09/2017 10:48 AM [email or web address]
--- NOTE | 2017-12-09 11:42 | POSTANESTH ---
Post Anesthetic Evaluation Cardiovascular Status: Normal, Stable, Similar to Pre-Op Cond Respiratory Status: Normal, Stable, Similar to Pre-op Cond. Level of Consciousness/Mental Status: Can Participate in Eval Pain Control: Adequate, Prn Tx Ordered Nausea/Vomiting Control: Adequate, Prn Tx Ordered Complications Possibly Related to Anesthesia: None Noted
[2017-12-09 12:23] VITALS: BP 140/101
== END 2017-12-09 12:12 | disposition home or self-care (01) ==
LOC: FSGY 07:32
PROVIDERS: ATTEND Internal Medicine Gastroenterology
PROC: 0DJ08ZZ Inspection of Upper Intestinal Tract, Via Natural or Artificial Opening Endoscopic (ICD-10-PCS; principal; 2017-12-09 09:45)
DX: C15.5 Malignant neoplasm of lower third of esophagus (principal); K44.9 Diaphragmatic hernia without obstruction or gangrene; K92.1 Melena; D62 Acute posthemorrhagic anemia
CPT/HCPCS: J2704

== ENCOUNTER 2017-12-16 09:46 | Outpatient (CLI) | payer OTHER ==
[2017-12-16] MEDS ORDERED: diphenhydrAMINE 25 MG CAP PO ONE (10:00)
[2017-12-16] MEDS ORDERED: ACETAMINOPHEN 325 MG TAB PO ONE (10:00)
== END 2017-12-16 15:50 | disposition home or self-care (01) ==
LOC: FOBOP 09:46
PROVIDERS: ATTEND Internal Medicine Hematology & Oncology
PROC: 30233N1 Transfusion of Nonautologous Red Blood Cells into Peripheral Vein, Percutaneous Approach (ICD-10-PCS; principal; 2017-12-16)
DX: C15.9 Malignant neoplasm of esophagus, unspecified (principal)
CPT/HCPCS: 36430; P9016; J1642

== ENCOUNTER → 2017-12-22 | Outpatient (CLI) | payer OTHER | LOC: FIMAGING 11:04 | PROVIDERS: ATTEND Nurse Practitioner | DX: J69.0 Pneumonitis due to inhalation of food and vomit (principal); C15.4 Malignant neoplasm of middle third of esophagus ==

== ENCOUNTER 2017-12-30 08:52 | Outpatient (CLI) | payer OTHER ==
[2017-12-30] MEDS ORDERED: diphenhydrAMINE 25 MG CAP PO ONE (09:15)
[2017-12-30] MEDS ORDERED: ACETAMINOPHEN 325 MG TAB PO ONE (09:15)
[2017-12-30] MEDS ORDERED: diphenhydrAMINE 12.5 MG/5 ML UDCUP PO ONE (09:30)
== END 2017-12-30 15:29 | disposition home or self-care (01) ==
LOC: FOBOP 08:52
PROVIDERS: ATTEND Internal Medicine Hematology & Oncology
PROC: 30263N1 (ICD-10-PCS; principal; 2017-12-30)
DX: C15.9 Malignant neoplasm of esophagus, unspecified (principal); D63.0 Anemia in neoplastic disease; Z67.40 Type O blood, Rh positive
CPT/HCPCS: 36430; P9016; J1642